=== PATIENT | male | born 1940 | race Asian ===

== ENCOUNTER 2018-05-13 01:51 | Inpatient (IN) | payer MEDICARE, OTHER ==
[~2018-05-13] VITALS: Ht 165.1 cm; Wt 79.9 kg
[2018-05-13] MEDS ORDERED: INSLAN SQ (01:55)
[2018-05-13] MEDS ORDERED: LISI-662 PO (01:55)
[2018-05-13] MEDS ORDERED: MEMA10TA11 PO (01:55)
[2018-05-13] MEDS ORDERED: SIMV-260 PO (01:55)
[2018-05-13] MEDS ORDERED: ASPI81 PO (01:55)
[2018-05-13] MEDS ORDERED: METF500T6 PO (01:55)
[2018-05-13 02:18] LABS: GLUCOSE,POINT OF CARE 177 MG/DL (70-110)
[2018-05-13 02:48] LABS: BASOPHILS % (AUTO) 0.3 % (0.0-2.0); EOSINOPHILS % (AUTO) 3.1 % (1.0-6.0); HEMATOCRIT 42.5 % (41-53); HEMOGLOBIN 14.4 g/dL (13.5-17.5); LYMPHOCYTES # (AUTO) 2.7 K/uL (1.0-4.8); LYMPHOCYTES % (AUTO) 27.8 % (22.0-44.0); MEAN CORPUSCULAR HEMOGLOBIN 30.8 pg (26.0-34.0); MEAN CORPUSCULAR HGB CONC 33.9 G/dL (31.0-37.0); MEAN CORPUSCULAR VOLUME 91 fL (80-100); MONOCYTES # (AUTO) 0.8 K/uL (0.1-1.0); MONOCYTES % (AUTO) 8.4 % (2.0-9.0); NEUTROPHILS % (AUTO) 60.4 % (40.0-70.0); PLATELET COUNT (AUTO) 221 K/uL (150-450); RED BLOOD CELL COUNT(AUTO) 4.68 MIL/uL (4.50-5.90); RED CELL DISTRIBUTION WIDTH 13.7 % (11.5-14.5)
[2018-05-13 02:59] LABS: ANION GAP 9 mmol/L (8-16); CALCIUM, TOTAL 8.9 mg/dL (8.8-10.5); CARBON DIOXIDE 28 mmol/L (22-29); CHLORIDE 99 mmol/L (98-107); CREATININE 0.99 mg/dL (0.60-1.30); GLOMERULAR FILTR. RATE CALC > 60 mL/min (>60); GLUCOSE,RANDOM 209 mg/dL (70-110); POTASSIUM 3.6 mmol/L (3.5-5.1); SODIUM SERUM 136 mmol/L (136-145); UREA NITROGEN, BLOOD 17 mg/dL (7-18)
[2018-05-13 03:03] LABS: APPEARANCE,URINE CLEAR (CLEAR); BILIRUBIN,URINE NEGATIVE (NEGATIVE); GLUCOSE, URINE (UA) 250 mg/dL (NEGATIVE); KETONES,URINE TRACE mg/dL (NEGATIVE); LEUKOCYTE ESTERASE ,URINE NEGATIVE (NEGATIVE); NITRATE,URINE NEGATIVE (NEGATIVE); OCCULT BLOOD,URINE NEGATIVE (NEGATIVE); PROTEIN,URINE NEGATIVE (NEGATIVE); UROBILINOGEN,URINE 0.2 mg/dL (<=1.0)
[2018-05-13 03:04] LABS: ALANINE AMINOTRANSFERASE 32 U/L (12-78); ALBUMIN 3.9 g/dL (3.4-5.0); ALKALINE PHOSPHATASE 47 U/L (46-116); ASPARTATE AMINOTRANSFERASE 20 U/L (15-37); BILIRUBIN,TOTAL 0.2 mg/dL (0.1-1.0); TOTAL PROTEIN, SERUM 7.6 g/dL (6.4-8.2)
[2018-05-13 03:11] LABS: PROTHROMBIN TIME 10.1 SEC (9.4-11.6)
[2018-05-13 03:14] LABS: BACTERIA,URINE Few /HPF (None Seen); MUCUS,URINE Many LPF (None Seen); WBC,URINE 0-2 /HPF (0-5)
[2018-05-13] MEDS ORDERED: NITROGLYCERIN 0.4 MG SUBLINGUAL TABLET #25 SL ONE (03:30)
[2018-05-13] MEDS ORDERED: ASPIRIN 81 MG CHEWABLE TABLET PO ONE (03:30)
[2018-05-13] MEDS ORDERED: 0.9% SODIUM CHLORIDE 10 ML SYRINGE IVP PRN (05:00)
[2018-05-13] MEDS ORDERED: ACETAMINOPHEN 325 MG TABLET PO PRN ×2 (05:00→09:00)
[2018-05-13] MEDS ORDERED: ONDANSETRON HCL 4 MG/2 ML VIAL IVP PRN (05:00)
[2018-05-13 05:04] VITALS: BP 105/66
[2018-05-13] MEDS ORDERED: PNEUMOCOCCAL VACCINE POLYVALENT 0.5 ML VIAL [PPSV23] IM ONE (06:00)
[2018-05-13 07:28] VITALS: BP 119/65
[2018-05-13] MEDS ORDERED: OxyCODONE HCL/ACETAMINOPHEN 5-325 MG TABLET PO PRN (09:00)
[2018-05-13] MEDS ORDERED: MAGNESIUM HYDROXIDE SUSPENSION 30 ML UDCUP PO PRN (09:00)
[2018-05-13] MEDS ORDERED: DEXTROSE 50%-WATER 25 GM/50 ML SYRINGE IVP PRN (09:15)
[2018-05-13] MEDS: DOCUSATE SODIUM 100 MG CAPSULE PO SCH ×2 (09:53→20:14)
[2018-05-13] MEDS: PANTOPRAZOLE SODIUM 40 MG DR TABLET PO SCH (09:53)
[2018-05-13] MEDS: SIMVASTATIN 20 MG TABLET PO SCH (09:53)
[2018-05-13 11:08] LABS: GLUCOMETER DEV NAME(LOC) 5N 1P; GLUCOSE,POINT OF CARE 209 MG/DL (70-110)
[2018-05-13] MEDS: MEMANTINE HCL 10 MG TABLET PO SCH (11:29)
[2018-05-13] MEDS: INSULIN LISPRO 100 UNITS/ML SQ PRN ×3 (11:33→20:15)
[2018-05-13 11:35] VITALS: BP 128/71
[2018-05-13] MEDS: HEPARIN SODIUM,PORCINE 5,000 UNITS/ML VIAL SQ SCH ×2 (15:40→23:23)
[2018-05-13 16:30] VITALS: BP 138/55
[2018-05-13 19:18] LABS: GLUCOMETER DEV NAME(LOC) 5N 1P; GLUCOSE,POINT OF CARE 144 MG/DL (70-110)
[2018-05-13 19:18] LABS: GLUCOMETER DEV NAME(LOC) 5N 1P; GLUCOSE,POINT OF CARE 165 MG/DL (70-110)
[2018-05-13 19:38] VITALS: BP 140/73
[2018-05-13] MEDS: INSULIN GLARGINE,HUM.REC.ANLOG 100 UNITS/ML SQ SCH (20:15)
[2018-05-13 23:34] VITALS: BP 135/87
[2018-05-14 04:16] VITALS: BP 134/72
[2018-05-14 07:18] LABS: GLUCOMETER DEV NAME(LOC) 5N 1P; GLUCOSE,POINT OF CARE 94 MG/DL (70-110)
[2018-05-14 07:49] VITALS: BP 131/58
[2018-05-14] MEDS: HEPARIN SODIUM,PORCINE 5,000 UNITS/ML VIAL SQ SCH ×3 (08:51→23:10)
[2018-05-14] MEDS: ASPIRIN 81 MG CHEWABLE TABLET PO SCH (08:51)
[2018-05-14] MEDS: MEMANTINE HCL 10 MG TABLET PO SCH (08:51)
[2018-05-14] MEDS: PANTOPRAZOLE SODIUM 40 MG DR TABLET PO SCH (08:51)
[2018-05-14] MEDS: DOCUSATE SODIUM 100 MG CAPSULE PO SCH ×2 (08:52→20:09)
[2018-05-14] MEDS: SIMVASTATIN 20 MG TABLET PO SCH (08:52)
[2018-05-14 10:49] LABS: GLUCOMETER DEV NAME(LOC) 5N 2S; GLUCOSE,POINT OF CARE 158 MG/DL (70-110)
[2018-05-14 11:38] VITALS: BP 140/59
[2018-05-14] MEDS: INSULIN LISPRO 100 UNITS/ML SQ PRN ×3 (11:40→20:11)
[2018-05-14 13:39] LABS: GLUCOMETER DEV NAME(LOC) 5N 1P; GLUCOSE,POINT OF CARE 184 MG/DL (70-110)
[2018-05-14 15:05] VITALS: BP 127/74
[2018-05-14 19:40] VITALS: BP 100/41
[2018-05-14] MEDS: INSULIN GLARGINE,HUM.REC.ANLOG 100 UNITS/ML SQ SCH (20:11)
[2018-05-14 23:21] VITALS: BP 105/65
[2018-05-15 04:00] VITALS: BP 120/67
[2018-05-15 06:42] LABS: BASOPHILS % (AUTO) 0.3 % (0.0-2.0); EOSINOPHILS % (AUTO) 1.2 % (1.0-6.0); HEMATOCRIT 41.4 % (41-53); HEMOGLOBIN 14.2 g/dL (13.5-17.5); LYMPHOCYTES # (AUTO) 1.8 K/uL (1.0-4.8); LYMPHOCYTES % (AUTO) 16.7 % (22.0-44.0); MEAN CORPUSCULAR HEMOGLOBIN 31.1 pg (26.0-34.0); MEAN CORPUSCULAR HGB CONC 34.3 G/dL (31.0-37.0); MEAN CORPUSCULAR VOLUME 91 fL (80-100); MONOCYTES # (AUTO) 0.9 K/uL (0.1-1.0); MONOCYTES % (AUTO) 8.3 % (2.0-9.0); NEUTROPHILS # (AUTO) 8.1 K/uL (1.8-7.7); NEUTROPHILS % (AUTO) 73.5 % (40.0-70.0); PLATELET COUNT (AUTO) 215 K/uL (150-450); RED BLOOD CELL COUNT(AUTO) 4.57 MIL/uL (4.50-5.90); RED CELL DISTRIBUTION WIDTH 14.1 % (11.5-14.5)
[2018-05-15 07:24] LABS: ALANINE AMINOTRANSFERASE 35 U/L (12-78); ALBUMIN 3.4 g/dL (3.4-5.0); ALKALINE PHOSPHATASE 52 U/L (46-116); ANION GAP 9 mmol/L (8-16); ASPARTATE AMINOTRANSFERASE 28 U/L (15-37); BILIRUBIN,TOTAL 1.2 mg/dL (0.1-1.0); CARBON DIOXIDE 28 mmol/L (22-29); CHLORIDE 96 mmol/L (98-107); CREATININE 0.96 mg/dL (0.60-1.30); GLUCOSE,RANDOM 171 mg/dL (70-110); POTASSIUM 3.4 mmol/L (3.5-5.1); SODIUM SERUM 133 mmol/L (136-145); TOTAL PROTEIN, SERUM 7.5 g/dL (6.4-8.2); UREA NITROGEN, BLOOD 9 mg/dL (7-18)
[2018-05-15 07:26] VITALS: BP 114/73
[2018-05-15 07:31] LABS: GLOMERULAR FILTR. RATE CALC > 60 mL/min (>60)
[2018-05-15 07:34] LABS: GLUCOMETER DEV NAME(LOC) 5N 1P; GLUCOSE,POINT OF CARE 191 MG/DL (70-110)
[2018-05-15] MEDS: HEPARIN SODIUM,PORCINE 5,000 UNITS/ML VIAL SQ SCH (08:00)
[2018-05-15] MEDS ORDERED: POTASSIUM CHLORIDE 10 MEQ ER TABLET PO ONE ×2 (08:15→10:15)
[2018-05-15] MEDS: ASPIRIN 81 MG CHEWABLE TABLET PO SCH (08:35)
[2018-05-15] MEDS: SIMVASTATIN 20 MG TABLET PO SCH (08:36)
[2018-05-15] MEDS: PANTOPRAZOLE SODIUM 40 MG DR TABLET PO SCH (08:36)
[2018-05-15] MEDS: DOCUSATE SODIUM 100 MG CAPSULE PO SCH (08:36)
[2018-05-15] MEDS: MEMANTINE HCL 10 MG TABLET PO SCH (08:37)
[2018-05-15] MEDS ORDERED: POTASSIUM CHLORIDE 20 MEQ ER TABLET PO ONE (09:15)
[2018-05-15] MEDS ORDERED: SESTAMIBI TC99M/UD ISOTOPE 1 EA INJ INJ ONE ×2 (11:10→12:16)
[2018-05-15 11:45] VITALS: BP 113/70
[2018-05-15] MEDS ORDERED: REGADENOSON 0.4 MG/5 ML PF SYRINGE IVP ONE ×2 (12:20→16:59)
[2018-05-15] MEDS ORDERED: AMINOPHYLLINE 25 MG/ML 10 ML VIAL IVP ONE ×2 (12:23→12:28)
[2018-05-15 12:28] VITALS: BP 107/60
[2018-05-15 12:43] LABS: GLUCOMETER DEV NAME(LOC) 5N 1P; GLUCOSE,POINT OF CARE 231 MG/DL (70-110)
[2018-05-15] MEDS: INSULIN LISPRO 100 UNITS/ML SQ PRN (12:51)
[2018-05-15 13:24] VITALS: BP 97/55
[2018-05-15 15:34] VITALS: BP 107/51
[2018-05-15] MEDS ORDERED: AMINOPHYLLINE 25 MG/ML 10 ML VIAL ONE (16:59)
[2018-05-15 23:02] LABS: GLUCOMETER DEV NAME(LOC) 5N 2S; GLUCOSE,POINT OF CARE 210 MG/DL (70-110)
[2018-05-15 23:02] LABS: GLUCOMETER DEV NAME(LOC) 5N 2S; GLUCOSE,POINT OF CARE 182 MG/DL (70-110)
== END 2018-05-15 17:50 | disposition home or self-care (01) | DRG 313 ==
LOC: EMS 01:53 → 5N 04:07
PROVIDERS: ADMIT Internal Medicine; ATTEND Internal Medicine
DX: R07.89 Other chest pain (principal); E11.9 Type 2 diabetes mellitus without complications; I10 Essential (primary) hypertension; F03.90 Unspecified dementia, unspecified severity, without behavioral disturbance, psychotic disturbance, mood disturbance, and anxiety; E78.00 Pure hypercholesterolemia, unspecified; E87.6 Hypokalemia; Z79.4 Long term (current) use of insulin; Z79.82 Long term (current) use of aspirin; Z79.899 Other long term (current) drug therapy
CPT/HCPCS: 78452; 83735; 93005; 93017; 93306; 99291; A9500; J0280; J1644; J1815; J2785

== ENCOUNTER 2018-08-16 13:50 | Emergency (ER) | payer MEDICARE, OTHER ==
[~2018-08-16] VITALS: Ht 165.1 cm; Wt 81.8 kg
[~2018-08-16 13:50] MED LIST: ASPI81 PO; INSLAN SQ; LISI-662 PO; MEMA10TA11 PO; METF-960 PO; SIMV-260 PO
[2018-08-16] MEDS ORDERED: ACYCLOVIR 200 MG CAPSULE PO ONE (15:15)
[2018-08-16 15:25] VITALS: BP 120/75
== END 2018-08-16 15:25 | disposition home or self-care (01) ==
LOC: EMS 13:51
DX: B02.9 Zoster without complications (principal); E11.9 Type 2 diabetes mellitus without complications; I10 Essential (primary) hypertension; F03.90 Unspecified dementia, unspecified severity, without behavioral disturbance, psychotic disturbance, mood disturbance, and anxiety; Z79.82 Long term (current) use of aspirin; Z79.4 Long term (current) use of insulin; Z79.84 Long term (current) use of oral hypoglycemic drugs; Z79.899 Other long term (current) drug therapy

== ENCOUNTER → 2023-01-25 | Outpatient (CLI) | payer MEDICARE, OTHER ==
[~2023-01-25] MED LIST changes: +ASPI-1450 PO; -ASPI81 PO; -LISI-662 PO; +LISI-894 PO; +METF-1211 PO; -METF-960 PO
== END | disposition home or self-care (01) ==
LOC: RADMN 09:25
PROVIDERS: ATTEND Physical Medicine & Rehabilitation Spinal Cord Injury Medicine
DX: J34.89 Other specified disorders of nose and nasal sinuses (principal); F02.80 Dementia in other diseases classified elsewhere, unspecified severity, without behavioral disturbance, psychotic disturbance, mood disturbance, and anxiety
CPT/HCPCS: 70551